=== PATIENT | male | born 1960 | race Caucasian/White ===

== ENCOUNTER → 2017-02-21 | Outpatient (CLI) | payer OTHER ==
[~2017-02-21] MED LIST: ALEVE220 M1 PO; ALLOPURINOL 30300 M1 PO; AMLODIPINE BESYL5 MG PO; ASPIRIN EC81 M1 PO; B-COMPLEX WITH1 EAC2 PO; CRESTOR10 MG PO; FISH OIL 1,001000 M1 PO; LISINOPRIL20 MG PO; LOPRESSOR PO; LOSARTAN-HCTZ1 EACH PO; LOVASA PO; NEXIUM40 MG PO; PERCOCET 10-321 EACH PO; SIMVASTATIN20 MG PO; SPIRIVA INH; TEKTURNA HCT 31 EACH PO; TOPROL XL100 MG PO; VICODIN 5-3001 EACH PO; VITAMIN D31000 UNI2 PO; XANAX 0.5 MG0.5 M1 PO
== END ==
LOC: RAD 11:29
DX: R07.9 Chest pain, unspecified (principal); W19.XXXA Unspecified fall, initial encounter; Y93.89 Activity, other specified; Y92.89 Other specified places as the place of occurrence of the external cause; Y99.8 Other external cause status